=== PATIENT | female | born 1985 | race Two or more races ===

== ENCOUNTER 2017-11-26 23:40 | Outpatient (CLI) | payer OTHER | END 2017-11-27 06:00 | disposition home or self-care (01) | LOC: OBT 23:40 → L-D 11-27 00:47 → OBT 11-27 06:00 | DX: O62.9 Abnormality of forces of labor, unspecified (principal); Z3A.38 38 weeks gestation of pregnancy | CPT/HCPCS: 76818 ==

== ENCOUNTER 2017-11-28 08:36 | Inpatient (IN) | payer OTHER ==
[2017-11-28 09:29] LABS: ADD MAN DIFF? NO
[2017-11-28] MEDS ORDERED: MISOPROSTOL 200 MCG TAB PR (09:30)
[2017-11-28] MEDS ORDERED: LIDOCAINE 1% (MPF) 30 ML INJ INJ (09:30)
[2017-11-28] MEDS ORDERED: BUTORPHANOL 2 MG INJ IV (09:30)
[2017-11-28] MEDS ORDERED: OXYTOCIN 30 UNITS/LR 500 ML IV ×2 (09:30)
[2017-11-28] MEDS ORDERED: IBUPROFEN 600 MG TAB PO (09:30)
[2017-11-28] MEDS ORDERED: METHYLERGONOVINE 0.2 MG INJ IM (09:30)
[2017-11-28] MEDS ORDERED: CARBOPROST 250 MCG INJ IM (09:30)
[2017-11-28 09:32] LABS: WHITE BLOOD COUNT 5.5 10^3/ul (4.8-10.8)
[2017-11-28 09:32] LABS: BASOPHILS % 0.2 % (0.0-2.0); EOSINOPHILS # 0.1 10^3/ul (0.0-0.5); HEMATOCRIT 32.3 % (37.0-47.0); HEMOGLOBIN 11.2 g/dl (12.0-16.0); LYMPHOCYTES % 18.1 % (15.0-51.0); MEAN CORPUSCULAR HEMOGLOBIN 29.9 pg (29.0-33.0); MEAN CORPUSCULAR HGB CONC 34.7 g/dl (32.0-37.0); MEAN CORPUSCULAR VOLUME 86.4 fl (82.0-101.0); MEAN PLATELET VOLUME 8.7 fl (7.4-10.4); MONOCYTE # 0.5 10^3/ul (0.3-0.9); MONOCYTES % 8.8 % (0.0-11.0); NEUTROPHIL # 3.8 10^3/ul (1.6-7.5); PLATELET COUNT 202 10^3/UL (140-415); RED BLOOD COUNT 3.74 10^6/ul (4.20-5.40)
[2017-11-28 09:51] LABS: INR 0.94; PROTIME 12.7 Sec (11.9-14.9)
[2017-11-28 09:52] LABS: PARTIAL THROMBOPLASTIN TIME 26.4 Sec (25.0-35.0)
[2017-11-28] MEDS: LACTATED RINGER'S 1,000 ML IV ×3 (10:26→22:38)
[2017-11-28] MEDS: DEXTROSE 5%-LR 1,000 ML IV ×2 (10:55→18:55)
[2017-11-28] MEDS: DINOPROSTONE 10 MG VAG SUPP VAG (11:09)
[2017-11-28 13:46] LABS: HEPATITIS B SURFACE ANTIGEN NEGATIVE (NEGATIVE)
[2017-11-28 21:31] LABS: RAPID PLASMA REAGIN NONREACTIVE (NR)
[2017-11-28] MEDS ORDERED: FENTAnyl 2MCG/ML-ROPIV 0.2% 100 ML (22:30)
[2017-11-28] MEDS ORDERED: KETOROLAC 30 MG INJ IV (23:30)
[2017-11-28] MEDS ORDERED: HYDROmorphONE 0.5 MG/0.5 ML SYG IV ×2 (23:30)
[2017-11-28] MEDS ORDERED: NALOXONE (0.4 MG/ML) INJ IV (23:30)
[2017-11-28] MEDS ORDERED: ZOLPIDEM 5 MG TAB PO (23:30)
[2017-11-28] MEDS ORDERED: DIPHENHYDRAMINE 50 MG INJ IV (23:30)
[2017-11-29] MEDS: LACTATED RINGER'S 1,000 ML IV (01:58)
[2017-11-29] MEDS: DEXTROSE 5%-LR 1,000 ML IV (04:14)
[2017-11-29] MEDS: FENTAnyl 2MCG/ML-ROPIV 0.2% 100 ML BAG EPI (06:42)
[2017-11-29] MEDS: ONDANSETRON 4 MG INJ IV (07:58)
[2017-11-29] MEDS: OXYTOCIN 30 UNITS/LR 500 ML IV ×2 (08:31→09:27)
[2017-11-29] MEDS ORDERED: HYDROCODONE/APAP (5/325) TAB PO ×2 (09:00)
[2017-11-29] MEDS ORDERED: METHYLERGONOVINE 0.2 MG INJ IM (09:00)
[2017-11-29] MEDS ORDERED: CARBOPROST 250 MCG INJ IM (09:00)
[2017-11-29] MEDS ORDERED: DIPHENHYDRAMINE 50 MG INJ IV (09:00)
[2017-11-29] MEDS ORDERED: OXYTOCIN 30 UNITS/LR 500 ML IV (09:00)
[2017-11-29] MEDS ORDERED: ACETAMINOPHEN 325 MG TAB PO ×2 (09:00)
[2017-11-29] MEDS ORDERED: ONDANSETRON 4 MG INJ IV (09:00)
[2017-11-29] MEDS ORDERED: MAGNESIUM HYDROXIDE 30ML CUP PO (09:00)
[2017-11-29] MEDS ORDERED: ONDANSETRON 4 MG TAB PO (09:00)
[2017-11-29] MEDS ORDERED: MISOPROSTOL 200 MCG TAB PR (09:00)
[2017-11-29] MEDS ORDERED: DIBUCAINE 1% 30 GM OINT TOP (09:00)
[2017-11-29] MEDS ORDERED: SENNA/DOCUSATE NA (8.6MG/50MG) TAB PO (09:00)
[2017-11-29] MEDS ORDERED: DIPHENHYDRAMINE 25 MG CAP PO (09:00)
[2017-11-29] MEDS: LANOLIN 7 GM TUBE TOP (11:28)
[2017-11-29] MEDS: IBUPROFEN 800 MG TAB PO ×3 (11:28→23:48)
[2017-11-29] MEDS: LACTATED RINGER'S 1,000 ML IV* ×2 (12:41→16:35)
[2017-11-30] MEDS: LACTATED RINGER'S 1,000 ML IV* (00:35)
[2017-11-30] MEDS: IBUPROFEN 800 MG TAB PO ×3 (05:57→18:04)
[2017-11-30 08:59] LABS: ADD MAN DIFF? NO
[2017-11-30 09:04] LABS: WHITE BLOOD COUNT 8.6 10^3/ul (4.8-10.8)
[2017-11-30 09:04] LABS: BASOPHILS % 0.3 % (0.0-2.0); EOSINOPHILS # 0.1 10^3/ul (0.0-0.5); EOSINOPHILS % 1.2 % (0.0-7.0); HEMATOCRIT 34.5 % (37.0-47.0); HEMOGLOBIN 11.8 g/dl (12.0-16.0); LYMPHOCYTES # 1.4 10^3/ul (0.8-2.9); LYMPHOCYTES % 16.2 % (15.0-51.0); MEAN CORPUSCULAR HEMOGLOBIN 29.6 pg (29.0-33.0); MEAN CORPUSCULAR HGB CONC 34.2 g/dl (32.0-37.0); MEAN CORPUSCULAR VOLUME 86.7 fl (82.0-101.0); MEAN PLATELET VOLUME 9.2 fl (7.4-10.4); MONOCYTE # 0.6 10^3/ul (0.3-0.9); MONOCYTES % 6.5 % (0.0-11.0); NEUTROPHIL # 6.5 10^3/ul (1.6-7.5); NEUTROPHILS % 75.1 % (39.0-77.0); PLATELET COUNT 199 10^3/UL (140-415); RED BLOOD COUNT 3.98 10^6/ul (4.20-5.40); RED CELL DISTRIBUTION WIDTH 14.2 % (11.5-14.5)
[2017-12-01] MEDS: IBUPROFEN 800 MG TAB PO ×3 (00:18→12:31)
[2017-12-01] MEDS: MEASLES,MUMPS,RUBELLA VACCINE INJ SC* (09:00)
[2017-12-01] MEDS: VARICELLA VACCINE LIVE/PF 1,350 UNIT/0.5 ML ML SC* (09:00)
[2017-12-01] MEDS: DIPHTH/TET/ACEL PERTUSS (ADULT) 0.5 ML VIAL IM* (09:00)
== END 2017-12-01 13:25 | disposition home or self-care (01) | DRG 775 ==
LOC: PP1 11-29 10:45 → L-D 08:36
PROVIDERS: Obstetrics & Gynecology
PROC: 10E0XZZ Delivery of Products of Conception, External Approach (ICD-10-PCS; principal; 2017-11-29)
PROC: 3E033VJ Introduction of Other Hormone into Peripheral Vein, Percutaneous Approach (ICD-10-PCS; 2017-11-29)
DX: O36.63X0 Maternal care for excessive fetal growth, third trimester, not applicable or unspecified (principal); Z3A.39 39 weeks gestation of pregnancy; Z37.0 Single live birth
CPT/HCPCS: 76815; 82962; 85025; 85610; 85730; 86592; 86885; 86900; 86901; 87340